=== PATIENT | female | born 1970 | race Caucasian/White ===

== ENCOUNTER → 2019-06-07 07:38 | Outpatient (CLI) | payer OTHER, SELFPAY ==
--- NOTE | 2019-06-07 | DI.ECHO.S_ITS ---
[facility]---------+ [facility] +---------+ : : [address] [address] : : : : [id number] : : : : Phone: [phone]---------+ Echocardiogram Report + + :Name: KYAW DIAS Study Date: 06/07/2019 Height: 67 in : :[facility] Weight: 219 lb : : Gender: Female BSA: 2.1 m2 : :: 1970 Age: 48 yrs BP: 146/86 mmHg: :Reason For Study: AFIB : : Performed By: Ezio Foss : :Referring: KELLI TAVAREZ : + + Interpretation Summary 1) Normal left ventricular size, thickness, wall motion, and systolic function (EF 60-65%). 2) Normal right ventricular size and function. 3) No significant valvular abnormalities. 4) Compared to the Echo done 01/13/2016, no significant change. Procedure: A two-dimensional transthoracic echocardiogram with color flow and Doppler was performed. The study quality was technically adequate. Prior echo performed on 01/13/16. The patient was in normal sinus rhythm during the exam. Left Ventricle: The left ventricle is normal in size. There is normal left ventricular wall thickness. Proximal septal thickening is noted. Left ventricular systolic function is normal. The ejection fraction is estimated to be 60-65%. Left ventricular wall motion is normal. Right Ventricle: The right ventricle is normal in size and function. Atria: The left atrial size is normal. Right atrial size is normal. The interatrial septum is intact with no evidence for an atrial septal defect. Mitral Valve: The mitral valve is normal in structure and function. There is trace mitral regurgitation. Aortic Valve: The aortic valve is trileaflet. The aortic valve opens well. There is no aortic valve stenosis. No aortic regurgitation is present. Tricuspid Valve: The tricuspid valve is normal in structure and function. There is trace tricuspid regurgitation. Pulmonary artery pressures cannot be estimated because of the lack of a measurable TR jet velocity. Pulmonic Valve: The pulmonic valve is normal in structure and function. There is no pulmonic valvular regurgitation. Great Vessels: The aortic root is normal size. The dimensions of the ascending aorta are normal. The pulmonary artery is normal size. The inferior vena cava was not visualized. Pericardium/ Pleura There is no pericardial effusion. There is no pleural effusion. MMode/2D Measurements & Calculations LVIDd: 4.8 cm LVOT diam: 2.1 cm LVIDs: 3.4 cm Ao root diam: 2.9 cm FS: 30.5 % Aortic Jxn: 2.7 cm EPSS: 0.76 cm IVSd: 1.1 cm LVPWd: 0.95 cm LV ribeiro. diameter/BSA (cm/m^2): 2.3 LV sys. diameter/BSA (cm/m^2): 1.6 LA A2 area: 17.6 cm2 RA long axis: 5.4 cm LA A4 area: 23.0 cm2 RA area: 14.8 cm2 LA length (vol): 5.6 cm RA vol: 34.7 ml LA vol: 60.9 ml RA : 16.5 ml/m2 LA vol index: 29.0 ml/m2 TAPSE: 2.2 cm Doppler Measurements & Calculations Ao V2 max: 158.9 cm/sec LVOT Max Remi: 111.4 cm/sec Ao V2 mean: 108.7 cm/sec LV V1 max P.0 mmHg Ao max P.1 mmHg LV V1 VTI: 23.6 cm Ao mean P.3 mmHg ADORE(I,D): 2.5 cm2 Ao V2 VTI: 33.2 cm ADORE(V,D): 2.4 cm2 sev ratio: 0.71 ADORE indexed to BSA (cm^2/m^2): 1.2 MV E max remi: 80.3 cm/sec TR max ermi: 230.2 cm/sec MV A max remi: 63.4 cm/sec TR max P.5 mmHg MV E/A: 1.3 PA Accel Time: 0.11 sec Med Peak E' Remi: 10.5 cm/sec E/E' med: 7.6 Lat Peak E' Remi: 10.0 cm/sec E/E' lat: 8.0 E/e' average: 7.8 MV dec time: 0.20 sec SV(LVOT): 82.5 ml Reading Physician:10:09 AM
[2019-06-07 08:18] LABS: Add Manual Diff / Slide Review NO; Basophils Absolute Auto 100 /uL (0-100); Basophils Percent Auto 0.8 % (0-2); Eosinophils Absolute Auto 300 /uL (0-450); Eosinophils Percent Auto 3.7 % (2-4); Hematocrit 37.1 % (36-46); Hemoglobin 12.1 g/dL (12.0-16.0); Lymphocytes Absolute Auto 2500 /uL (1100-4500); Lymphocytes Percent Auto 30.2 % (25-40); Mean Corpuscular HGB Conc 32.7 % (30-36); Mean Corpuscular Hemoglobin 26.8 PG (26-34); Mean Corpuscular Volume 81.9 fL (80-100); Monocytes Absolute Auto 500 /uL (0-900); Monocytes Percent Auto 6.7 % (3-14); Neutrophils Absolute Auto 4800 /uL (1500-7000); Neutrophils Percent Auto 58.6 % (50-75); Platelet Count 339 X10^3/uL (150-400); Red Blood Cell Count 4.53 X10^6/uL (4.0-5.2); Red Cell Distribution Width 15.2 % (11.6-14.8); White Blood Cell Count 8.2 X10^3/uL (4.5-11.0)
[2019-06-07 08:27] LABS: Blood Urea Nitrogen 14 mg/dL (7-17); Calcium 9.4 mg/dL (8.4-10.2); Carbon Dioxide 26 mmol/L (22-32); Chloride 106 mmol/L (98-107); Cholesterol 194 mg/dL (140-199); Estimated Glomerular Filt Rate > 60.0 mL/min (>60); Glucose 116 mg/dL (70-100); HDL Cholesterol 49 mg/dL (40-60); HEMOLYSIS < 15 (0-50); LDL Cholesterol Calculated 117 mg/dL (<100); Potassium 4.1 mmol/L (3.4-5.1); Sodium 140 mmol/L (137-145); Triglycerides 141 mg/dL (35-150)
== END ==
PROVIDERS: Visit Provider Internal Medicine Cardiovascular Disease
DX: I48.91 Unspecified atrial fibrillation (principal); I10 Essential (primary) hypertension
CPT/HCPCS: 36415; 80048; 80061; 85025; 93306

== ENCOUNTER → 2020-06-15 11:40 | Oncology outpatient (ONC) | payer OTHER, SELFPAY ==
[2018-02-10 13:34] VITALS: BP 131/78; PULSE 72; RESP 18; TEMP 36.5; O2SAT 98
--- NOTE | 2018-02-10 14:59 | ONC.APRN.PN ---
Assessment and Plan (1) History of malignant neoplasm of breast Onset Date: 01/29/16 Current visit: No Status: None 02/10/18 15:02 Samara is a very plesant 47 year old female who carries a diagnosis of stage III ER positive HER-2 negative breast cancer in clinical remission/surveillance since original diagnosis was made back in 2008. She is status post bilateral mastectomy also status post hysterectomy with oophorectomy. She is tolerating tamoxifen 20 mg once daily with adverse effects. She has been on tamoxifen since 2009, plan is to continue for 10 years. Reassuringly on exam today no clinical signs or symptoms of disease recurrence. CBC, CMP unremarkable. I will have the patient return in 6 months time for provider visit, CBC, CMP. PN -Subjective Interval history: The patient is a 47 year old Female who is being seen in the clinic 02/10/2018. She carries a diagnosis of stage III ER positive HER-2 negative breast cancer in clinical remission/surveillance since original diagnosis was made back in 2008. Patient continues with tamoxifen plan is to continue for total of 10 years which she started in June 2009. No new complaints whatsoever on exam today. Overall feeling quite well. Tolerating tamoxifen without adverse effects. No lower extremity edema. She does have occasional mild hot flash. Mood is stable. No vaginal bleeding. No vaginal discharge. No new pain. No new lumps or bumps. Appetite is stable, weight is stable. No change with bowel movements. No recent illnesses or infections. Past Medical History The patient's past medical history is significant for: 1. Left-sided stage III T3 N1 M0 invasive ductal carcinoma, diagnosed in 2008 while a resident of [place]. Patient's primary was triple positive. She's status post neoadjuvant chemotherapy with docetaxel, carboplatin, Herceptin followed by a mastectomy with a noted complete pathological response. She completed 1 year of maintenance Herceptin followed by chest wall radiation and started tamoxifen June 2009 and was also on Zoladex from between the period of August of 2009 through April 2013. Patient is noted to be BRCA1 and BRCA2 tested and negative. Past Surgical History The patient's past surgical history includes: Patient is status post hysterectomy March 2012. Results - Imaging Additional studies: Procedures Other and unspecified subtotal abdominal hysterectomy (03/29/13) Other removal of both ovaries and tubes at same operative episode (03/29/13) Home Medications and Allergies Home Medications Medication Instructions Recorded Confirmed Type apixaban [Eliquis] 5 mg BID #0 01/29/16 History diltiazem HCl [Cardizem LA] Q DAY #0 01/29/16 History flecainide PRN PRN #0 01/29/16 History [PROBIOTIC] Q DAY #0 06/11/16 History fluconazole [Diflucan] 150 mg PO SEE INSTRUCTIONS PRN #5 11/19/16 Rx tab im-bs-updy-FA-herbal cmplx#190 02/10/18 History [Vitamin D3 Complete] tamoxifen 20 mg PO DAILY #90 tab 02/10/18 Rx Allergies Allergy/AdvReac Type Severity Reaction Status Date / Time oxycodone [OXYCODONE] Allergy Severe ANAPHYLAXIS Unverified 09/24/17 11:51 Exam Vital signs: Last Vital Signs Temp 97.7 F 02/10/18 13:34 Pulse 72 02/10/18 13:34 Resp 18 02/10/18 13:34 BP 131/78 H 02/10/18 13:34 Pulse Ox 98 02/10/18 13:34 Narrative: well appearing - Constitutional positive no acute distress, positive average body habitus - Routine HEENT Exam Head: Absent: facial swelling Eye: Absent: conjunctival icterus ENT: Present: mucous membranes moist, oropharynx clear - Routine Neck Exam Present: supple. Absent: lymphadenopathy - Routine Chest/Breast/Axilla Exam Chest wall exam standard: Absent: tenderness, mass Axillae: Absent: lymphadenopathy, mass, tenderness - Routine Respiratory Exam Present: Clear to auscultation bilaterally. Absent: rales, rhonchi, wheezes - Routine Cardiovascular Exam Present: RRR, S1, S2. Absent: murmur, gallop, rubs, JVD - Routine Abdominal Exam Present: soft, normoactive bowel sounds. Absent: tenderness, distended, organomegaly, mass - Routine Extremities Exam Present: clubbing. Absent: edema, calf tenderness - Routine Skin Exam Present: intact, normal turgor. Absent: petechiae, rash - Routine Neurological Exam Present: alert, oriented X3 - Routine Psychiatric Exam Present: normal affect
--- NOTE | 2018-09-15 14:50 | ONC.SCHED ---
Pt had labs drawn at [facility] in [place]. Telephone for lab results: [phone]
[2018-09-16 11:52] VITALS: BP 147/83; PULSE 87; RESP 16; TEMP 36.9; O2SAT 99
--- NOTE | 2018-09-16 12:30 | ONC.PN ---
PN -Subjective Interval history: Diagnosis: Stage III breast cancer, ER positive HER2 positive. She was BRCA 1 and 2 negative. Previous treatment: 1. Neoadjuvant chemotherapy with carboplatin docetaxel and Herceptin in 2008 2. Mastectomy with complete pathologic response 3. Adjuvant radiation 4. Maintenance Herceptin for 1 year The patient is a 47 year old Female who is being seen in the clinic 02/10/2018. She carries a diagnosis of stage III ER positive HER-2 negative breast cancer in clinical remission/surveillance since original diagnosis was made back in 2008. 5. Tamoxifen beginning in June 2009. 6. She had a prophylactic right mastectomy and bilateral salpingo-oophorectomy in 2011. Interval history: Patient is a 47-year-old woman who returns today for follow-up. She has a history of stage III triple positive cancer. She had a complete pathologic response to neoadjuvant chemotherapy and has been on extended adjuvant therapy with tamoxifen. Since her last visit here, she has been feeling generally well. She has no specific complaints today. She denies any new aches or pains. She has had some occasional discomfort along the incision on the left chest wall but it has been intermittent and stable. No shortness of breath or cough. No nausea or vomiting. No GI complaints. She has not noted any adenopathy. She is otherwise without complaint today. Her past medical history is otherwise notable for atrial fibrillation. She has had prior bilateral mastectomies and hysterectomy with salpingo-oophorectomy Her current medications include Eliquis diltiazem tamoxifen and vitamins. She has a prescription for flecainide as needed but has not needed to take it. Social history: She lives in [place] but travels to this area of frequently, she is planning to move back within the next couple years. She does not smoke. She works in real estate. - Additional ROS All systems PM: reviewed and no additional remarkable complaints except as stated Home Medications and Allergies Home Medications Medication Instructions Recorded Confirmed Type apixaban [Eliquis] 5 mg BID #0 01/29/16 History diltiazem HCl [Cardizem LA] Q DAY #0 01/29/16 History flecainide PRN PRN #0 01/29/16 History aw-nd-qczy-FA-herbal cmplx#190 02/10/18 History [Vitamin D3 Complete] tamoxifen 20 mg PO DAILY #90 tab 08/28/18 Rx Allergies Allergy/AdvReac Type Severity Reaction Status Date / Time oxycodone [OXYCODONE] Allergy Severe ANAPHYLAXIS Unverified 09/24/17 11:51 Exam Vital signs: Vital Signs Temp Pulse Resp BP Pulse Ox 09/16/18 11:52 98.5 F 87 16 147/83 H 99 Intake and Output 09/15/18 09/16/18 09/16/18 23:59 07:59 15:59 Other: Weight 95.5 kg Patient Weight 09/16/18 23:59 Weight 95.5 kg - Constitutional positive no acute distress, positive average body habitus - Routine HEENT Exam Head: Present: normocephalic, atraumatic Eye: Present: EOMI, PERRL. Absent: conjunctival icterus, scleral injection ENT: Present: mucous membranes moist, oropharynx clear - Routine Neck Exam Present: supple. Absent: lymphadenopathy, thyromegaly - Routine Chest/Breast/Axilla Exam Chest wall exam standard: Absent: tenderness Breast: Present: right mastectomy, left mastectomy Axillae: Absent: lymphadenopathy Comments: Her reconstructions are well healed. There are no new masses or nodularity. - Routine Respiratory Exam Present: Clear to auscultation bilaterally. Absent: rales, wheezes - Routine Cardiovascular Exam Present: RRR, S1, S2. Absent: murmur - Routine Abdominal Exam Present: soft, normoactive bowel sounds. Absent: organomegaly, mass - Routine Extremities Exam Absent: cyanosis, clubbing, edema - Routine Back/Spine Exam Back/Spine: Absent: paraspinal tenderness, vertebral tenderness - Routine Skin Exam Present: intact. Absent: petechiae, rash - Routine Neurological Exam Present: alert, oriented X3 - Routine Psychiatric Exam Present: normal affect, normal thought process Results - Labs CA 27-29 was normal - Imaging Additional studies: Procedures Other and unspecified subtotal abdominal hysterectomy (03/29/13) Other removal of both ovaries and tubes at same operative episode (03/29/13) Assessment and Plan (1) History of malignant neoplasm of breast Onset Date: 01/29/16 Current visit: No Status: Chronic 47-year-old woman with a history of triple positive stage III breast cancer. She is doing well on extended adjuvant therapy with tamoxifen. She has no evidence of recurrence and is doing well. She will be due to finish her tamoxifen around the end of the year. Today, we discussed the rationale for extended adjuvant therapy. I did point out that there was no data beyond 10 years of treatment that suggested any benefit. Even the degree of benefit for years 5 through 10 is relatively small and magnitude. That benefit is primarily limited to relapse free survival and not overall survival. I think it is quite safe for her to stop her tamoxifen after 10 years. She will return to clinic here for follow-up in May. I think she will likely be able to stop her tamoxifen at that time. After that, the only required follow-up would be a physical exam annually. Because she has had bilateral mastectomies there is no role for mammographies. Routine laboratory monitoring is not recommended.
[2019-06-08 11:38] VITALS: BP 146/91; PULSE 90; RESP 18; TEMP 37.1; O2SAT 97
--- NOTE | 2019-06-08 11:57 | P.PNONC_ITS ---
PN -Subjective Interval history: Diagnosis: Stage III breast cancer, ER positive HER2 positive. She was BRCA 1 and 2 negative. Previous treatment: 1. Neoadjuvant chemotherapy with carboplatin docetaxel and Herceptin in 2008 2. Mastectomy with complete pathologic response 3. Adjuvant radiation 4. Maintenance Herceptin for 1 year The patient is a 47 year old Female who is being seen in the clinic 02/10/2018. She carries a diagnosis of stage III ER positive HER-2 negative breast cancer in clinical remission/surveillance since original diagnosis was made back in 2008. 5. Tamoxifen beginning in June 2009. 6. She had a prophylactic right mastectomy and bilateral salpingo-oophorectomy in 2011. Interval history: Patient is a 48-year-old woman who returns today for follow-up. She has a history of stage III triple positive cancer. She had a complete pathologic response to neoadjuvant chemotherapy and has been on extended adjuvant therapy with tamoxifen. Since her last visit here, she has been feeling generally well. She has no specific complaints today. She denies any new aches or pains. She has noted some itching on the left chest wall in an area that's been radiated. She has not noticed any change in the color. There's been no nodularity or masses. She has had a mild cough that has been nonproductive. No pain in the chest or shortness of breath. No fevers or chills. No abdominal complaints. She denies any other changes in her health. Her past medical history is otherwise notable for atrial fibrillation. She has had prior bilateral mastectomies and hysterectomy with salpingo-oophorectomy Her current medications include Eliquis diltiazem tamoxifen and vitamins. She has a prescription for flecainide as needed but has not needed to take it. Social history: She lives in [place] but travels to this area of frequently, she is planning to move back within the next couple years. She does not smoke. She works in real estate. Home Medications and Allergies Home Medications Medication Instructions Recorded Confirmed Type Eliquis 5 mg BID #0 01/29/16 History diltiazem HCl [Cardizem LA] Q DAY #0 01/29/16 History flecainide PRN PRN #0 01/29/16 History [id number]-tp-iyib-FA-herbal cmplx#190 02/10/18 History [Vitamin D3 Complete] tamoxifen 20 mg PO DAILY #90 tab 02/10/18 Rx Allergies Allergy/AdvReac Type Severity Reaction Status Date / Time oxycodone [OXYCODONE] Allergy Severe ANAPHYLAXIS Unverified 09/24/17 11:51 Exam Vital signs: Vital Signs Temp Pulse Resp BP Pulse Ox 06/08/19 11:38 98.7 F 90 18 146/91 H 97 Intake and Output 06/07/19 06/08/19 06/08/19 23:59 07:59 15:59 Other: Weight 102.6 kg Patient Weight 06/08/19 23:59 Weight 102.6 kg - Constitutional positive no acute distress, positive average body habitus - Routine HEENT Exam Head: Present: normocephalic, atraumatic Eye: Present: EOMI, PERRL. Absent: conjunctival icterus, scleral injection ENT: Present: mucous membranes moist, oropharynx clear - Routine Neck Exam Present: supple. Absent: lymphadenopathy, thyromegaly - Routine Chest/Breast/Axilla Exam Breast: Present: right mastectomy, left mastectomy Comments: Chest wall shows bilateral reconstructions. She does have some radiation kiser es to the skin. There is no nodularity or masses. No axillary adenopathy on either side. - Routine Respiratory Exam Present: Clear to auscultation bilaterally. Absent: rales, wheezes - Routine Cardiovascular Exam Present: RRR, S1, S2. Absent: murmur - Routine Abdominal Exam Present: soft, normoactive bowel sounds. Absent: tenderness, organomegaly, mass - Routine Extremities Exam Absent: cyanosis, clubbing, edema - Routine Back/Spine Exam Back/Spine: Absent: vertebral tenderness - Routine Skin Exam Present: intact. Absent: petechiae, rash - Routine Neurological Exam Present: alert, oriented X3 - Routine Psychiatric Exam Present: normal affect, normal thought process Results - Imaging Additional studies: Procedures Other and unspecified subtotal abdominal hysterectomy (03/29/13) Other removal of both ovaries and tubes at same operative episode (03/29/13) Assessment and Plan (1) History of malignant neoplasm of breast Onset Date: 01/29/16 Current visit: No Status: Chronic 47-year-old woman with a history of triple positive stage III breast cancer. She has no evidence of disease and is doing well. She'll stop her tamoxifen as soon as she runs out of her current prescription. This point, the only follow- up required would be an annual physical exam. She has had bilateral mastectomy so there is no role for mammography. She'll return to clinic in 1 year for follow-up.
--- NOTE | 2020-06-15 12:18 | ONC.PN ---
PN -Subjective Interval history: ID/CC: 49 year old female with stage III left breast cancer Previous treatment: 1. Neoadjuvant chemotherapy with carboplatin docetaxel and Herceptin in 2008 2. Bilateral mastectomy with complete pathologic response 3. Adjuvant radiation 4. Maintenance Herceptin for 1 year 5. Tamoxifen beginning in June 2009, and stopped May 2019 6. She had bilateral breast reconstruction 7. Subtotal abdominal hysterectomy and BSO on 03/29/2013 8. The patient is noted to be BRCA1 and BRCA2 tested and negative. History of Present Illness: Samara is a 49-year old woman. She has a history of stage III triple positive left-sided stage III T3 N1 M0 invasive ductal carcinoma, diagnosed in 2008 while a resident of [place]. She underwent neoadjuvant chemotherapy with docetaxel, carboplatin, Herceptin followed by a left mastectomy and surgical path showed complete pathological response. At the same day, she underwent prophylactic right mastectomy. Thereafter, she completed 1 year of maintenance Herceptin followed by chest wall radiation. She started tamoxifen June 2009 and was also on Zoladex from between the period of August of 2009 through April 2013. She completed tamoxifen in 05/2019. Interim Events: She presents today for scheduled one year follow up visit. Clinically, she reports no new problems. She denies any new lumps or bumps. - Additional ROS All systems PM: reviewed and no additional remarkable complaints except as stated Home Medications and Allergies Home Medications Medication Instructions Recorded Confirmed Type Eliquis 5 mg BID #0 01/29/16 06/15/20 History diltiazem HCl [Cardizem LA] 180 mg Q DAY #0 01/29/16 06/15/20 History flecainide 100 mg PRN PRN #0 01/29/16 06/15/20 History fb-lp-aktr-FA-herbal cmplx#190 1 tab DAILY 02/10/18 06/15/20 History [Vitamin D3 Complete] albuterol 90 mcg INHALATION PRN PRN 06/15/20 06/15/20 History cetirizine [Aller-Saúl] 10 mg DAILY 06/15/20 06/15/20 History milk thistle 200 mg PO DAILY 06/15/20 06/15/20 History Allergies Allergy/AdvReac Type Severity Reaction Status Date / Time oxycodone [OXYCODONE] Allergy Severe ANAPHYLAXIS Unverified 09/24/17 11:51 Exam Vital signs: 06/15/20 12:25 Last Vital Signs Temp 98.7 F 06/08/19 11:38 Pulse 90 06/08/19 11:38 Resp 18 06/08/19 11:38 BP 146/91 H 06/08/19 11:38 Pulse Ox 97 06/08/19 11:38 - Constitutional positive no acute distress, positive obese, positive cooperative - Routine HEENT Exam Head: Present: normocephalic, atraumatic Eye: Present: EOMI, PERRL, normal accommodation. Absent: conjunctival icterus, scleral injection ENT: Present: mucous membranes moist - Routine Neck Exam Present: supple, full ROM. Absent: JVD, lymphadenopathy, thyromegaly, tenderness, swelling - Routine Chest/Breast/Axilla Exam Breast: Absent: right mastectomy, left mastectomy Axillae: Absent: lymphadenopathy Comments: Both breasts were absent status post bilateral reconstruction. No palpable masses or nodules in both breasts. No palpable lymph nodes in both axilla - Routine Respiratory Exam Present: Clear to auscultation bilaterally. Absent: accessory muscle use, wheezes - Routine Cardiovascular Exam Present: RRR, S1, S2. Absent: murmur, gallop, rubs - Routine Abdominal Exam Present: soft. Absent: tenderness, distended, organomegaly - Routine Extremities Exam Absent: edema, calf tenderness - Routine Neurological Exam Present: alert, oriented X3, CN II-XII intact, normal speech. Absent: sensory deficit, motor deficit - Routine Psychiatric Exam Present: normal affect, normal thought process, cooperative, good insight, good judgment Results - Labs Reviewed. - Imaging Additional studies: Procedures Other and unspecified subtotal abdominal hysterectomy (03/29/13) Other removal of both ovaries and tubes at same operative episode (03/29/13) Assessment and Plan (1) History of malignant neoplasm of breast Samara is a 49-year old woman with stage III triple positive left-sided stage III T3 N1 M0 invasive ductal carcinoma diagnosed in 2008, status post neoadjuvant docetaxel, carboplatin, and Herceptin followed by bilateral mastectomy. Surgical path showed complete pathological response. She completed 1 year of maintenance Herceptin followed by chest wall radiation. She then completed about 10 years of tamoxifen 06/2009 - 05/2019 Clinically, I do not think there is any evidence of disease. She is doing well. Her works at [facility] [employer] and she would like to transfer care to [facility] Plan: Refer to [facility] for follow up in one year
--- NOTE | 2020-06-19 15:59 | ONC.SCHED ---
Completed Dr. Hernandez's request to transfer patient's care to [facility]. Scanned fax confirmation.
== END ==
PROVIDERS: Visit Provider Internal Medicine Hematology & Oncology
DX: Z08 Encounter for follow-up examination after completed treatment for malignant neoplasm (principal); Z85.3 Personal history of malignant neoplasm of breast; Z90.13 Acquired absence of bilateral breasts and nipples
CPT/HCPCS: 99214; 99215